=== PATIENT | female | born 1950 | race African-American/Black ===

== ENCOUNTER 2016-11-16 19:26 | Emergency (ER) | payer OTHER ==
[~2016-11-16] VITALS: Ht 170.2 cm; Wt 159.8 kg
[~2016-11-16 19:26] MED LIST: AMOXICILLIN500 M1 PO; ANTIVERT25 MG PO; AZITHROMYCIN250 MG1 PO; BENADRYL ALLERG25 MG PO; COLCHICINE0.6 M1 PO; DELTASONE20 M1 PO; EXCEDRIN EXTRA1 EACH PO; INDOMETHACIN50 MG PO; NORCO 5/3251 TABLET PO; PREDNISONE20 MG PO; PREDNISONE50 MG PO; ULTRAM50 MG PO
[2016-11-16 22:34] LABS: EOSINOPHIL (%) 3.3 % (0-5); EOSINOPHIL COUNT 0.3 K/uL (0-0.3); HEMATOCRIT 41.7 % (36.0-46.0); IMMATURE GRANULOCYTE (%) 0.5 % (0.0-0.7); IMMATURE GRANULOCYTE COUNT 0.5 K/uL; LYMPHOCYTE COUNT 3.3 K/uL (1.0-2.8); MCH 27.9 PG (29.0-34.0); MCHC 32.6 G/DL (30.0-36.0); MCV 85.6 FL (83-99); MEAN PLAT.VOLUME 10.2 uM^3 (9.5-12.4); MONOCYTE (%) 6.3 % (3-12); MONOCYTE COUNT 0.7 K/uL (0-0.8); NEUTROPHIL (%) 58.2 % (45-76); NEUTROPHIL COUNT 6.1 K/uL (1.8-6.4); PLATELET COUNT 217 K/uL (156-360); RBC DIS.WIDTH-CV 15.9 % (11.8-14.6); RBC DIS.WIDTH-SD 49.6 % (39-53); RED BLOOD COUNT 4.87 M/uL (3.80-5.20); WHITE BLOOD COUNT 10.5 K/uL (4.1-10.2)
[2016-11-16 22:42] LABS: CHLORIDE 105 mEq/L (99-109); POTASSIUM 3.9 mEq/L (3.7-5.4); SODIUM 139 mEq/L (136-147)
[2016-11-16 22:44] LABS: GLUCOSE 105 mg/dL (70-99)
[2016-11-16 22:46] LABS: ANION GAP 5 MEQ/L (2-14)
[2016-11-16 22:48] LABS: GFR ESTIMATE (CALCULATED) > 59 mL/min/
[2016-11-16 22:49] LABS: UREA NITROGEN (BUN) 11 mg/dL (9-23)
[2016-11-16 22:50] LABS: URIC ACID 6.7 mg/dL (3.1-9.2)
[2016-11-17 00:05] VITALS: BP 103/59
[2016-11-17] MEDS ORDERED: PERCOCET 5/31 TABLET PO (00:12)
[2016-11-17] MEDS ORDERED: INDOCIN50 MG PO (00:13)
[2016-11-17] MEDS ORDERED: MEDROL DOSEPAK4 MG PO (00:14)
[2016-11-17] MEDS ORDERED: DELTASONE20 M1 PO (00:22)
== END 2016-11-17 00:20 | disposition home or self-care (01) ==
LOC: EME 19:26
PROVIDERS: Emergency Medicine
DX: M10.9 Gout, unspecified (principal); M06.9 Rheumatoid arthritis, unspecified
CPT/HCPCS: 73630; 80048; 84550; 85025; 99281; 99284; J7512